=== PATIENT | male | born 1955 | race Caucasian/White ===

== ENCOUNTER 2017-03-15 05:00 | Emergency (ER) | payer OTHER ==
[2017-03-15] MEDS: predniSONE 20 MG TAB PO (06:46)
[2017-03-15] MEDS: ALBUTEROL 0.083% (NEB) 2.5 MG/3 ML AMP HHN (07:01)
== END 2017-03-15 07:14 | disposition home or self-care (01) ==
LOC: FTE 05:00
DX: J06.9 Acute upper respiratory infection, unspecified (principal); I10 Essential (primary) hypertension
CPT/HCPCS: 71045; 94664; 99284-25